=== PATIENT | male | born 1980 | race Caucasian/White ===

== ENCOUNTER 2017-03-21 07:03 | Emergency (ER) | payer MEDICAID ==
[2017-03-21 07:35] LABS: BASOPHILS 0.8 % (0-2); EOSINOPHILS 3.9 % (0-7); HEMATOCRIT 46.1 % (42.0-54.0); HEMOGLOBIN 15.6 g/dL (13.5-17.5); IMMATURE GRANULOCYTES 0.1 % (0-5); LYMPHOCYTES 17.9 % (15-50); MCH 30.4 pg (26.0-34.0); MCHC 33.8 g/dL (31.0-37.0); MCV 89.7 fL (80.0-100.0); MEAN PLATELET VOLUME 10.3 fL (7.4-10.4); MONOCYTES 9.3 % (2-11); PLATELET COUNT 167 10x3/uL (130-400); RBC 5.14 10x6/uL (4.20-6.10); RDW 12.7 % (11.5-14.5); WBC 7.7 10x3/uL (4.8-10.8)
[2017-03-21 07:59] LABS: ALBUMIN 3.3 g/dL (3.4-5.0); ALKALINE PHOSPHATASE 75 U/L (46-116); ALT (SGPT) 20 U/L (10-68); BILIRUBIN - TOTAL 0.13 mg/dL (0.2-1.3); CALC OSMOLALITY 274 mosm/kg (275-300); CALCIUM 8.3 mg/dL (8.5-10.1); CARBON DIOXIDE 30.2 mmol/L (21.0-32.0); CHLORIDE - SERUM 103 mmol/L (98-107); GLUCOSE 109 mg/dL (74-106); POTASSIUM - SERUM 4.1 mmol/L (3.5-5.1); PROTEIN - SERUM 6.6 g/dL (6.4-8.2); SODIUM 138 mmol/L (136-145); UREA NITROGEN 8 mg/dL (7-18); eGFR NON AFRICAN AMERICAN 90 mL/min (90-120)
[2017-03-21 08:07] LABS: CKMB 1.7 U/L (0.0-3.6); CREATINE KINASE 90 UL (21-232); TROPONIN-I < 0.017 ng/mL (0.000-0.060)
== END 2017-03-21 08:25 | disposition home or self-care (01) ==
LOC: D.ER 07:03
PROVIDERS: Family Medicine
DX: G40.909 Epilepsy, unspecified, not intractable, without status epilepticus (principal); I10 Essential (primary) hypertension; R11.2 Nausea with vomiting, unspecified; R55 Syncope and collapse; F17.200 Nicotine dependence, unspecified, uncomplicated

== ENCOUNTER → 2017-05-10 13:12 | Outpatient (CLI) | payer MEDICAID | END | disposition home or self-care (01) | LOC: D.LAB 11:45 | DX: G40.209 Localization-related (focal) (partial) symptomatic epilepsy and epileptic syndromes with complex partial seizures, not intractable, without status epilepticus (principal) ==

== ENCOUNTER → 2017-11-23 09:55 | Outpatient (CLI) | payer MEDICAID | END | disposition home or self-care (01) | LOC: D.NM 09:55 | DX: I20.9 Angina pectoris, unspecified (principal) ==

== ENCOUNTER 2018-02-06 09:39 | Emergency (ER) | payer MEDICAID ==
[~2018-02-06] VITALS: Ht 172.7 cm; Wt 68.2 kg
[2018-02-06 09:43] VITALS: Ht 172.7 cm; Wt 68.2 kg
[2018-02-06 10:08] LABS: BASOPHILS 0.4 % (0-2); EOSINOPHILS 2.4 % (0-7); HEMOGLOBIN 17.5 g/dL (13.5-17.5); IMMATURE GRANULOCYTES 0.5 % (0-5); LYMPHOCYTES 17.5 % (15-50); MCH 30.9 pg (26.0-34.0); MCHC 34.3 g/dL (31.0-37.0); MCV 89.9 fL (80.0-100.0); MEAN PLATELET VOLUME 11.2 fL (7.4-10.4); MONOCYTES 9.2 % (2-11); PLATELET COUNT 172 10x3/uL (130-400); RBC 5.67 10x6/uL (4.20-6.10); RDW 12.7 % (11.5-14.5); WBC 11.1 10x3/uL (4.8-10.8)
[2018-02-06 10:32] LABS: ALKALINE PHOSPHATASE 78 U/L (46-116); ALT (SGPT) 24 U/L (10-68); CALC OSMOLALITY 273 mosm/kg (275-300); CALCIUM 9.3 mg/dL (8.5-10.1); CARBON DIOXIDE 28.5 mmol/L (21.0-32.0); CHLORIDE - SERUM 103 mmol/L (98-107); CREATININE - SERUM 1.3 mg/dL (0.6-1.3); GLUCOSE 100 mg/dL (74-106); POTASSIUM - SERUM 4.1 mmol/L (3.5-5.1); PROTEIN - SERUM 7.9 g/dL (6.4-8.2); SODIUM 138 mmol/L (136-145); UREA NITROGEN 7 mg/dL (7-18); eGFR NON AFRICAN AMERICAN 66 mL/min (90-120)
[2018-02-06 10:37] LABS: THYROID STIMULATING HORMONE 1.12 uIU/mL (0.36-3.74)
[2018-02-06 10:48] LABS: PHENYTOIN (DILANTIN) < 0.5 ug/mL (10.0-20.0)
[2018-02-06] MEDS ORDERED: DILANTIN100 MG PO (13:29)
[2018-02-06 13:51] VITALS: BP 118/78
== END 2018-02-06 13:50 | disposition home or self-care (01) ==
LOC: D.ER 09:39
PROVIDERS: Family Medicine
DX: G40.909 Epilepsy, unspecified, not intractable, without status epilepticus (principal)

== ENCOUNTER 2020-12-10 18:17 | Emergency (ER) | payer OTHER ==
[~2020-12-10] VITALS: Ht 172.7 cm; Wt 65.9 kg
[~2020-12-10 18:17] MED LIST: DILANTIN100 MG PO
[2020-12-10 18:21] VITALS: Ht 172.7 cm; Wt 65.9 kg
[2020-12-10] MEDS ORDERED: DICLOFENAC SODI50 MG PO (19:52)
[2020-12-10] MEDS ORDERED: ZANAFLEX4 MG PO (19:52)
[2020-12-10 19:58] VITALS: BP 128/86
[2020-12-10 20:04] LABS: BILIRUBIN NEGATIVE (NEGATIVE); KETONE NEGATIVE (NEGATIVE); NITRITE NEGATIVE (NEGATIVE); UROBILINOGEN NORMAL mg/dL (< 2)
== END 2020-12-10 19:58 | disposition home or self-care (01) ==
LOC: D.ER 18:17
PROVIDERS: Family Medicine
DX: S39.012A Strain of muscle, fascia and tendon of lower back, initial encounter (principal); S16.1XXA Strain of muscle, fascia and tendon at neck level, initial encounter; S29.012A Strain of muscle and tendon of back wall of thorax, initial encounter; S09.90XA Unspecified injury of head, initial encounter; V89.2XXA Person injured in unspecified motor-vehicle accident, traffic, initial encounter; Y93.9 Activity, unspecified; Y92.9 Unspecified place or not applicable